=== PATIENT | male | born 1960 | race African-American/Black ===

== ENCOUNTER 2016-12-13 00:17 | Inpatient (IN) | payer MEDICARE, OTHER ==
[~2016-12-13] VITALS: Ht 182.9 cm; Wt 86.6 kg
[~2016-12-13 00:17] MED LIST: ATE50T PO; GABA-497 PO; HCTZ25T PO; HYDR-531 PO; LISI40TA PO; METH750T3 PO; NAP500T PO
[2016-12-13] MEDS ORDERED: InsuLIN REG 1unit/0.01ml Soln (100units/ml) IV ONE (00:45)
[2016-12-13] MEDS ORDERED: SODIUM CHLORIDE 0.9% 1,000 ML IV ONE ×4 (00:45→05:30)
[2016-12-13 00:56] LABS: Allen Test Yes; Base Excess -11.9 mmol/L (-2.0-2.0); Blood 02Sat 94.1 % (96-100); Blood COHb 0.4 % (0.5-1.5); Blood MetHb 0.5 % (0.0-1.5); HCO3 12.5 mmol/L (22-26.0); HHb 5.8 % (0.0-5.0); MODE ROOM AIR; O2Hb 93.3 % (94.0-97.0); PCO2 25.9 mmHg (35.0-45.0); PCO2(T) 25.9 mmHg (35.0-45.0); PO2 90.3 mmHg (80.0-100.0); PO2(T) 90.3 mmHg (80.0-100.0); Sample Type Arterial; pH 7.301 (7.350-7.450)
[2016-12-13 01:17] LABS: Basophils # (auto) 0 uL; CONDITION Y; Eosinophils # (auto) 0 uL; Hematocrit 45.9 % (41.0-53.0); Hemoglobin 14.7 g/dL (13.5-17.5); Lymphocytes # (auto) 0.9 uL; Lymphocytes % (auto) 4.8 % (10.0-50.0); Mean Corpuscular Hemoglobin 30.2 pg (28.0-32.0); Mean Corpuscular Hgb Conc. 31.9 g/dL (32.0-36.0); Mean Corpuscular Volume 94.4 fL (80.0-100.0); Mean Platelet Volume 10.5 fL (7.4-10.4); Monocytes # (auto) 0.9 uL; Monocytes % (auto) 4.7 % (0.0-12.0); Neutrophils # (auto) 16.4 uL; Neutrophils % (auto) 90.5 % (37.0-80.0); Platelet Count (auto) 290 10^3/uL (140-450); Red Cell Distribution Width 14.3 % (11.6-16.0); White Blood Cell 18.1 10^3/uL (4.4-10.8)
[2016-12-13 01:22] LABS: INR 1.07 (0.9-1.15); Partial Thromboplastin Time 25.1 sec (22.64-33.71); Prothrombin Time 11.7 sec (9.37-12.3)
[2016-12-13 01:23] LABS: Albumin 3.4 g/dL (3.4-5.0); Calcium 8.9 mg/dL (8.5-10.1); Magnesium 3.2 mg/dL (1.6-2.6); Total Protein 7.8 g/dL (6.4-8.2)
[2016-12-13 01:27] LABS: Bilirubin, Total 0.7 mg/dL (0.2-1.0)
[2016-12-13 01:29] LABS: Potassium 5.9 mmol/L (3.5-5.1)
[2016-12-13 01:30] LABS: B-Type Natriuretic Peptide 56.02 pg/mL (0-100)
[2016-12-13 01:47] LABS: Temperature: 23.7 C (20.0-25.0)
[2016-12-13] MEDS ORDERED: CALCIUM GLUC 4.65 MEQ/10ML 4.65 MEQ in SODIUM CHL 0.9% 50 ML IV ONE (02:45)
[2016-12-13] MEDS ORDERED: SODIUM BICARBONATE 8.4 % INJ 50ML VIAL IV ONE (02:45)
[2016-12-13 02:49] LABS: Urine Bilirubin Negative (Negative); Urine Blood TRACE /uL (Negative); Urine Color Yellow (Yellow); Urine Glucose 4+ mg/dL (Normal); Urine Hyaline Cast FEW /lpf (0 - 2); Urine Ketone 1+ (Negative); Urine Mucus FEW (None Seen); Urine Nitrite Negative (Negative); Urine RBC <1 /hpf (0 - 3); Urine Urobilinogen Normal (Negative)
[2016-12-13] MEDS ORDERED: CALCIUM GLUC 4.65 MEQ/10ML 10 ML IV ONE (02:49)
[2016-12-13] MEDS ORDERED: SODIUM BICARBONATE 8.4% INJ 50ML SYRINGE ONE (03:17)
[2016-12-13] MEDS ORDERED: InsuLIN R (HUMAN) 100 UNITS in SODIUM CHL 0.9% 99 ML IV SCH ×2 (03:32→05:46)
[2016-12-13] MEDS ORDERED: DEXTROSE (50%) 50ML SYRG IV PRN ×2 (03:45→06:00)
[2016-12-13 04:55] LABS: REFLEX LACTIC ACID YES OR NO YES
[2016-12-13] MEDS: ACCU-CHEK COMFORT CURVE STRIP VI SCH ×15 (05:35→18:36)
[2016-12-13] MEDS ORDERED: MORPHINE SULF INJ 2 MG/ML SYRINGE 1ML IV PRN (06:00)
[2016-12-13] MEDS ORDERED: TEMAZEPAM 15 MG CAP PO PRN (06:00)
[2016-12-13] MEDS ORDERED: NITROGLYCERIN 0.4 MG SL TAB SL PRN (06:00)
[2016-12-13] MEDS ORDERED: ONDANSETRON HCL 4 MG/2 ML VIAL IV PRN (06:00)
[2016-12-13] MEDS ORDERED: ACETAMINOPHEN 325 MG TAB PO PRN (06:00)
[2016-12-13 08:42] LABS: BUN/Creatinine Ratio 30.5; Calcium 9.1 mg/dL (8.5-10.1); Potassium 3.9 mmol/L (3.5-5.1)
[2016-12-13] MEDS ORDERED: cefTRIAXone 1GM/50ML D5W 50 ML IV SCH (09:00)
[2016-12-13] MEDS ORDERED: HCTZ 25 MG TAB PO SCH (10:00)
[2016-12-13] MEDS ORDERED: ENOXAPARIN SOD 30 MG/0.3 ML SYRINGE SC SCH (10:00)
[2016-12-13] MEDS ORDERED: LISINOPRIL 20 MG TAB PO SCH (10:00)
[2016-12-13] MEDS: PANTOPRAZOLE SODIUM 40 MG/10 ML VIAL IV SCH (10:07)
[2016-12-13] MEDS: ATENOLOL 50 MG TAB PO SCH (10:14)
[2016-12-13] MEDS ORDERED: SODIUM CHLORIDE 0.9% 1,000 ML IV SCH (11:46)
[2016-12-13 13:10] LABS: Potassium 3.7 mmol/L (3.5-5.1)
[2016-12-13 13:12] LABS: BUN/Creatinine Ratio 32.5
[2016-12-13] MEDS: SOD CHL 0.45% 1,000 ML IV SCH (14:07)
[2016-12-13] MEDS ORDERED: INSULIN DETEMIR(LEVEMIR) 1unit/0.01ml Soln (100units/ml) SC ONE (15:00)
[2016-12-13] MEDS: HYDROcodone-ACET 5/325MG TAB PO PRN (16:45)
[2016-12-13] MEDS ORDERED: InsuLIN REG 1unit/0.01ml Soln (100units/ml) ONE (16:56)
[2016-12-13 18:05] LABS: BUN/Creatinine Ratio 32.5; Calcium 9.2 mg/dL (8.5-10.1); Potassium 3.8 mmol/L (3.5-5.1)
[2016-12-13 20:30] VITALS: BP 149/96
[2016-12-13] MEDS: InsuLIN REG 1unit/0.01ml Soln (100units/ml) SC SCH (20:39)
[2016-12-13 23:27] VITALS: BP 149/96
[2016-12-14] VITALS (7 sets, daily range): BP systolic 125–155; BP diastolic 62–98
[2016-12-14 01:10] LABS: BUN/Creatinine Ratio 31.7; Calcium 8.8 mg/dL (8.5-10.1); Potassium 3.8 mmol/L (3.5-5.1)
[2016-12-14] MEDS: ACCU-CHEK COMFORT CURVE STRIP VI SCH ×6 (04:00→21:54)
[2016-12-14] MEDS: InsuLIN REG 1unit/0.01ml Soln (100units/ml) SC SCH ×6 (04:00→21:55)
[2016-12-14 09:42] LABS: CONDITION Y; Hematocrit 42.6 % (41.0-53.0); Hemoglobin 14.3 g/dL (13.5-17.5); Mean Corpuscular Hemoglobin 30.4 pg (28.0-32.0); Mean Corpuscular Hgb Conc. 33.5 g/dL (32.0-36.0); Mean Corpuscular Volume 90.8 fL (80.0-100.0); Mean Platelet Volume 9.6 fL (7.4-10.4); Platelet Count (auto) 219 10^3/uL (140-450); Red Cell Distribution Width 14.1 % (11.6-16.0); SUSPECT SEE PRINTOUT; White Blood Cell 20.9 10^3/uL (4.4-10.8)
[2016-12-14] MEDS: ATENOLOL 50 MG TAB PO SCH (09:43)
[2016-12-14] MEDS: ENOXAPARIN SOD 40 MG/0.4 ML SYRINGE SC SCH (09:44)
[2016-12-14] MEDS: PANTOPRAZOLE SODIUM 40 MG/10 ML VIAL IV SCH (09:44)
[2016-12-14] MEDS: SOD CHL 0.45% 1,000 ML IV SCH ×3 (09:45→13:15)
[2016-12-14 09:48] LABS: Metamyelocytes % 0; Myelocytes % 0; Promyelocytes % 0; Reactive Lymphocytes 0
[2016-12-14 09:58] LABS: Albumin 2.9 g/dL (3.4-5.0); BUN/Creatinine Ratio 36.8; Bilirubin, Total 0.5 mg/dL (0.2-1.0); Calcium 8.8 mg/dL (8.5-10.1); Magnesium 2.8 mg/dL (1.6-2.6); Potassium 3.7 mmol/L (3.5-5.1); Total Protein 6.6 g/dL (6.4-8.2)
[2016-12-14] MEDS ORDERED: DEXTROSE (50%) 50ML SYRG IV PRN (12:15)
[2016-12-14] MEDS ORDERED: INSULIN DETEMIR(LEVEMIR) 1unit/0.01ml Soln (100units/ml) SC ONE (12:15)
[2016-12-14] MEDS: GABAPENTIN 300 MG CAP PO SCH ×2 (13:22→21:54)
[2016-12-14 14:27] LABS: Platelet Estimate Adequate
[2016-12-14 14:32] LABS: RBC Morphology Normal
[2016-12-14] MEDS: INSULIN DETEMIR(LEVEMIR) 1unit/0.01ml Soln (100units/ml) SC SCH (21:57)
[2016-12-15 05:00] VITALS: BP 140/76
[2016-12-15] MEDS: SOD CHL 0.45% 1,000 ML IV SCH ×2 (05:28→19:36)
[2016-12-15] MEDS: GABAPENTIN 300 MG CAP PO SCH ×4 (06:00→22:00)
[2016-12-15 06:07] LABS: Basophils # (auto) 0 uL; Basophils % (auto) 0.3 % (0.0-2.0); CONDITION Y; Eosinophils # (auto) 0.4 uL; Eosinophils % (auto) 3.3 % (0.0-7.0); Hematocrit 43.4 % (41.0-53.0); Hemoglobin 14.3 g/dL (13.5-17.5); Lymphocytes % (auto) 24.4 % (10.0-50.0); Mean Corpuscular Hemoglobin 30.4 pg (28.0-32.0); Mean Corpuscular Hgb Conc. 32.9 g/dL (32.0-36.0); Mean Corpuscular Volume 92.4 fL (80.0-100.0); Mean Platelet Volume 9.6 fL (7.4-10.4); Monocytes # (auto) 0.7 uL; Platelet Count (auto) 202 10^3/uL (140-450); Red Cell Distribution Width 13.9 % (11.6-16.0); White Blood Cell 12.2 10^3/uL (4.4-10.8)
[2016-12-15] MEDS: InsuLIN REG 1unit/0.01ml Soln (100units/ml) SC SCH ×4 (06:49→22:41)
[2016-12-15] MEDS: ACCU-CHEK COMFORT CURVE STRIP VI SCH ×4 (06:49→22:00)
[2016-12-15 07:00] VITALS: BP 139/68
[2016-12-15] MEDS: HYDROcodone-ACET 5/325MG TAB PO PRN ×2 (09:28→17:15)
[2016-12-15] MEDS: ATENOLOL 50 MG TAB PO SCH (09:28)
[2016-12-15] MEDS: PANTOPRAZOLE SODIUM 40 MG/10 ML VIAL IV SCH (09:31)
[2016-12-15] MEDS: ENOXAPARIN SOD 40 MG/0.4 ML SYRINGE SC SCH (09:31)
[2016-12-15] MEDS: INSULIN DETEMIR(LEVEMIR) 1unit/0.01ml Soln (100units/ml) SC SCH ×2 (09:39→22:41)
[2016-12-15 09:58] LABS: BUN/Creatinine Ratio 27.2; Calcium 8.9 mg/dL (8.5-10.1); Potassium 3.9 mmol/L (3.5-5.1)
[2016-12-15 12:00] VITALS: BP 148/83
[2016-12-15 16:40] VITALS: BP 132/87
[2016-12-15 22:00] VITALS: BP 152/98
[2016-12-16 05:00] VITALS: BP 144/91
[2016-12-16 05:24] VITALS: BP 98/50
[2016-12-16] MEDS: HYDROcodone-ACET 5/325MG TAB PO PRN (05:46)
[2016-12-16] MEDS: GABAPENTIN 300 MG CAP PO SCH ×2 (05:50→14:00)
[2016-12-16 06:59] LABS: Basophils # (auto) 0.1 uL; Basophils % (auto) 0.6 % (0.0-2.0); CONDITION Y; Eosinophils # (auto) 0.4 uL; Eosinophils % (auto) 4.5 % (0.0-7.0); Hematocrit 40.8 % (41.0-53.0); Hemoglobin 13.6 g/dL (13.5-17.5); Lymphocytes # (auto) 2.8 uL; Lymphocytes % (auto) 32.6 % (10.0-50.0); Mean Corpuscular Hemoglobin 30.1 pg (28.0-32.0); Mean Corpuscular Hgb Conc. 33.2 g/dL (32.0-36.0); Mean Corpuscular Volume 90.8 fL (80.0-100.0); Mean Platelet Volume 9.9 fL (7.4-10.4); Monocytes # (auto) 0.4 uL; Monocytes % (auto) 4.3 % (0.0-12.0); Platelet Count (auto) 188 10^3/uL (140-450); Red Cell Distribution Width 14.1 % (11.6-16.0); White Blood Cell 8.6 10^3/uL (4.4-10.8)
[2016-12-16 07:21] LABS: BUN/Creatinine Ratio 24.4; Calcium 8.6 mg/dL (8.5-10.1); Potassium 3.9 mmol/L (3.5-5.1)
[2016-12-16 09:00] VITALS: BP 144/98
[2016-12-16] MEDS: ENOXAPARIN SOD 40 MG/0.4 ML SYRINGE SC SCH (09:56)
[2016-12-16] MEDS: ATENOLOL 50 MG TAB PO SCH (09:58)
[2016-12-16] MEDS ORDERED: PANTOPRAZOLE 40 MG TAB PO SCH (10:00)
[2016-12-16] MEDS: INSULIN DETEMIR(LEVEMIR) 1unit/0.01ml Soln (100units/ml) SC SCH (10:01)
[2016-12-16] MEDS ORDERED: INSUINJ37 SUBCUT (11:16)
[2016-12-16] MEDS: ACCU-CHEK COMFORT CURVE STRIP VI SCH (12:24)
[2016-12-16] MEDS: InsuLIN REG 1unit/0.01ml Soln (100units/ml) SC SCH (12:25)
[2016-12-16 13:00] VITALS: BP 152/92
[2016-12-16 13:21] VITALS: BP 152/92
== END 2016-12-16 15:50 | disposition home health service (06) | DRG 682 ==
LOC: EDBD 00:17 → ER 00:17 → TELE 00:18 → TELE-WESTW 21:20 → WEST WING 12-15 01:34
PROVIDERS: ADMIT Nurse Practitioner; ATTEND Internal Medicine
DX: N17.0 Acute kidney failure with tubular necrosis (principal); E13.10 Other specified diabetes mellitus with ketoacidosis without coma; G92 Toxic encephalopathy; E87.0 Hyperosmolality and hypernatremia; E87.5 Hyperkalemia; E86.0 Dehydration; E11.21 Type 2 diabetes mellitus with diabetic nephropathy; N18.9 Chronic kidney disease, unspecified; E11.22 Type 2 diabetes mellitus with diabetic chronic kidney disease; I12.9 Hypertensive chronic kidney disease with stage 1 through stage 4 chronic kidney disease, or unspecified chronic kidney disease; I25.10 Atherosclerotic heart disease of native coronary artery without angina pectoris; M48.02 Spinal stenosis, cervical region; Z82.49 Family history of ischemic heart disease and other diseases of the circulatory system; Z91.11 Patient's noncompliance with dietary regimen; Z79.4 Long term (current) use of insulin; Z79.899 Other long term (current) drug therapy
CPT/HCPCS: 36415; 36600; 70450; 71010; 72125; 80048; 80053; 80061; 80307; 81001; 82010; 82805; 82962; 83036; 83605; 83735; 83880; 83930; 84484; 85007; 85025; 85027; 85610; 85730; 87040; 93005; 94761; 96361; 96365; 96367; 96372; 96375; 97116; 97530; C9113; J0696; J1815

== ENCOUNTER 2018-11-27 16:50 | Inpatient (IN) | payer MEDICARE ==
[~2018-11-27] VITALS: Ht 176.5 cm; Wt 87.2 kg
[~2018-11-27 16:50] MED LIST changes: -GABA-497 PO; +GABA300C10 PO; +INSUINJ37 SUBCUT
[2018-11-27] MEDS ORDERED: hydrALAZINE HCL 20 MG/ML VL IV ONE ×2 (17:45)
[2018-11-27 18:25] LABS: Basophils # (auto) 0.1 uL; Basophils % (auto) 0.9 % (0.0-2.0); Eosinophils # (auto) 0.1 uL; Eosinophils % (auto) 1.6 % (0.0-7.0); Hematocrit 42.8 % (41.0-53.0); Hemoglobin 13.8 g/dL (13.5-17.5); Lymphocytes # (auto) 1.9 uL; Lymphocytes % (auto) 22.4 % (10.0-50.0); Mean Corpuscular Hemoglobin 27.3 pg (28.0-32.0); Mean Corpuscular Hgb Conc. 32.2 g/dL (32.0-36.0); Mean Corpuscular Volume 84.7 fL (80.0-100.0); Monocytes # (auto) 0.6 uL; Neutrophils # (auto) 5.8 uL; Neutrophils % (auto) 68.1 % (37.0-80.0); Nucleated Red Blood Cells % 0.1 %; Platelet Count (auto) 367 10^3/uL (140-450); Red Blood Cells 5.06 10^6/uL (4.5-5.90); Red Cell Distribution Width 17.3 % (11.8-14.3); White Blood Cell 8.5 10^3/uL (4.4-10.8)
[2018-11-27 18:41] LABS: Albumin 2.7 g/dL (3.4-5.0); Calcium 9.1 mg/dL (8.5-10.1); INR 0.95 (0.9-1.15); Magnesium 2.5 mg/dL (1.6-2.6); Potassium 3.9 mmol/L (3.5-5.1)
[2018-11-27 18:50] LABS: BUN/Creatinine Ratio 18.9; Bilirubin, Total 0.4 mg/dL (0.2-1.0)
[2018-11-27] MEDS ORDERED: HYDROcodone-ACET 5/325MG TAB PO ONE (19:15)
[2018-11-27] MEDS ORDERED: InsuLIN REG 1unit/0.01ml Soln (100units/ml) IV ONE (19:30)
[2018-11-27] MEDS ORDERED: ONDANSETRON HCL 4 MG/2 ML VIAL IV PRN (21:45)
[2018-11-27] MEDS ORDERED: LABETALOL HCL 5 MG/ML ML 20ML VIAL IV ONE (21:45)
[2018-11-27] MEDS ORDERED: ACETAMINOPHEN 325 MG TAB PO PRN (21:45)
[2018-11-27] MEDS ORDERED: DEXTROSE (50%) 50ML SYRG IV PRN (21:45)
[2018-11-27] MEDS: LISINOPRIL 20 MG TAB PO SCH (22:00)
[2018-11-27] MEDS: GABAPENTIN 300 MG CAP PO SCH (22:00)
[2018-11-27] MEDS: HYDROcodone-ACET 5/325MG TAB PO PRN (22:37)
[2018-11-27] MEDS: TEMAZEPAM 15 MG CAP PO PRN (22:37)
[2018-11-27] MEDS ORDERED: SODIUM CHLORIDE 0.9% 1,000 ML IV ONE (23:00)
--- NOTE | 2018-11-27 23:22 | NUR ---
MS admit from [facility] admitted to tele/MS after SBAR received. Patient oriented to LINDA LUU RN primary RN, unit, room, bed, and unit policies regarding patient care and visiting hours. Patient weighed by bedscale and encouraged to call if they need something. All questions and concerns addressed, patient verbalized understanding.
[2018-11-27] MEDS: SODIUM CHLORIDE 0.9% 1,000 ML IV SCH (23:30)
[2018-11-27] MEDS: InsuLIN REG 1unit/0.01ml Soln (100units/ml) SC SCH (23:56)
[2018-11-27] MEDS: ACCU-CHEK COMFORT CURVE STRIP VI SCH (23:56)
--- NOTE | 2018-11-27 23:56 | NUR ---
Hospitalist paged: Hospitalist paged regarding RN taking patient's blood pressure multiple times with last BP reading 185/108 with a heart rate of 108.
[2018-11-28] VITALS (7 sets, daily range): BP systolic 156–197; BP diastolic 96–115
--- NOTE | 2018-11-28 00:50 | NUR ---
Hospitalist returned call: Hospitalist returned call and updated on patient's condition regarding elevated BP: New orders obtained.
[2018-11-28] MEDS ORDERED: LABETALOL HCL 5 MG/ML ML 20ML VIAL IV ONE ×2 (01:00→05:30)
--- NOTE | 2018-11-28 02:02 | NUR ---
RN attempted to reassess patient's blood pressure after administration of PRN HTN medication but patient refused and stated he "wants to sleep" and that he is okay. RN to continue to monitor and assess patient.
--- NOTE | 2018-11-28 03:47 | NUR ---
MED REC PT DOES NOT REMEMBER HOME MEDS, SON TO BRING IN LIST IN AM. PRIMARY RN LINDA HINOJOSA.
[2018-11-28] MEDS: InsuLIN REG 1unit/0.01ml Soln (100units/ml) SC SCH ×5 (04:27→19:57)
[2018-11-28] MEDS: ACCU-CHEK COMFORT CURVE STRIP VI SCH ×5 (04:27→19:57)
--- NOTE | 2018-11-28 04:44 | NUR ---
Hospitalist paged: Hospitalist paged regarding RN taking patient's blood pressure multiple times with last BP reading 181/115 with a heart rate of 197. Patient complaining of feeling dizzy and patient expressing mild anxiety e/b mild restlessness. Patient placed on supplemental oxygen and repositioned in bed for comfort. RN continues to monitor patient at this time. Addendum: 11/28/18 at 0452 by LINDA LUU RN RN HR of 97, not 197
--- NOTE | 2018-11-28 05:17 | NUR ---
Hospitalist returned call: Hospitalist informed of patients condition and situation. New orders received.
[2018-11-28 06:19] LABS: Basophils # (auto) 0.1 uL; Basophils % (auto) 0.7 % (0.0-2.0); Eosinophils # (auto) 0.3 uL; Hematocrit 41.2 % (41.0-53.0); Hemoglobin 13.5 g/dL (13.5-17.5); Lymphocytes # (auto) 2.9 uL; Lymphocytes % (auto) 30.1 % (10.0-50.0); Mean Corpuscular Hemoglobin 27.4 pg (28.0-32.0); Mean Corpuscular Hgb Conc. 32.6 g/dL (32.0-36.0); Mean Corpuscular Volume 84.1 fL (80.0-100.0); Monocytes # (auto) 0.6 uL; Monocytes % (auto) 5.9 % (0.0-12.0); Neutrophils # (auto) 5.8 uL; Neutrophils % (auto) 60.3 % (37.0-80.0); Nucleated Red Blood Cells % 0.1 %; Platelet Count (auto) 340 10^3/uL (140-450); Red Cell Distribution Width 17.5 % (11.8-14.3); White Blood Cell 9.6 10^3/uL (4.4-10.8)
[2018-11-28 06:29] LABS: BUN/Creatinine Ratio 17.5; Potassium 3.3 mmol/L (3.5-5.1)
--- NOTE | 2018-11-28 06:52 | NUR ---
RN received call from REJI that patient had a run of V-tach. STAT EKG was performed and reading was NSR. Patient is asymptomatic and complaining of no chest pain at this time. Hospitalist paged and call returned. RN informed to give patient his morning HTN mediations early. Day shift RN informed.
[2018-11-28] MEDS: FAMOTIDINE 20 MG TAB PO SCH (08:05)
[2018-11-28] MEDS: ATENOLOL 50 MG TAB PO SCH (08:08)
[2018-11-28] MEDS: GABAPENTIN 300 MG CAP PO SCH ×2 (08:09→21:41)
[2018-11-28] MEDS: LISINOPRIL 20 MG TAB PO SCH ×2 (08:09→21:42)
[2018-11-28] MEDS: HYDROcodone-ACET 5/325MG TAB PO PRN ×2 (08:12→16:47)
[2018-11-28] MEDS ORDERED: HCTZ 25 MG TAB PO SCH (10:00)
[2018-11-28] MEDS ORDERED: LISINOPRIL 20 MG TAB PO ONE (13:15)
[2018-11-28 13:32] LABS: Cholesterol 135 mg/dL (< 200)
[2018-11-28 13:34] LABS: HDL Cholesterol 44 mg/dL (40-59); LDL Cholesterol 75 mg/dL (< 100); Triglycerides 161 mg/dL (< 150)
[2018-11-28] MEDS ORDERED: HYDROcodone-ACET 10/325MG TAB PO PRN (14:00)
[2018-11-28] MEDS: SODIUM CHLORIDE 0.9% 1,000 ML IV SCH (16:47)
--- NOTE | 2018-11-28 19:00 | NUR ---
Opening Shift Note Assumed care of patient, awake and alert. No S/S of distress/SOB or pain. Instructed on POC and to call for assist PRN, will continue to monitor for changes Q1hr and PRN.
[2018-11-28] MEDS: ATORVASTATIN 20 MG TAB PO SCH (21:41)
[2018-11-28] MEDS: cloNIDine HCL 0.1 MG TAB PO PRN (21:42)
[2018-11-28] MEDS ORDERED: LISINOPRIL 20 MG TAB PO SCH (22:00)
--- NOTE | 2018-11-28 22:42 | NUR ---
RN attempted to reassess patient's blood pressure after administration of PRN HTN medication but patient refused.
[2018-11-29] MEDS: ACCU-CHEK COMFORT CURVE STRIP VI SCH ×6 (00:07→20:44)
[2018-11-29] MEDS: SODIUM CHLORIDE 0.9% 1,000 ML IV SCH ×2 (01:18→13:09)
[2018-11-29] MEDS: InsuLIN REG 1unit/0.01ml Soln (100units/ml) SC SCH ×6 (04:00→20:45)
[2018-11-29] MEDS: HYDROcodone-ACET 5/325MG TAB PO PRN ×3 (04:31→20:10)
[2018-11-29 05:34] VITALS: BP 156/97
--- NOTE | 2018-11-29 07:40 | NUR ---
Assumed care of pt, awake and alert, no s&s of distress/sob or pain noted, instructed on poc and to call for assist prn, will continue to monitor for changes q1h and prn.
[2018-11-29 08:06] VITALS: BP 162/88
[2018-11-29] MEDS: ATENOLOL 50 MG TAB PO SCH (08:49)
[2018-11-29] MEDS: FAMOTIDINE 20 MG TAB PO SCH (08:50)
[2018-11-29] MEDS: GABAPENTIN 300 MG CAP PO SCH ×2 (08:50→22:16)
[2018-11-29] MEDS: HCTZ 25 MG TAB PO SCH (08:50)
[2018-11-29] MEDS: LISINOPRIL 20 MG TAB PO SCH ×2 (08:51→22:17)
--- NOTE | 2018-11-29 12:08 | NUR ---
Pt awake and alert, no s&s of distress/sob or pain noted, will continue to monitor for changes q1h and prn. Addendum: 11/29/18 at 1444 by Torito Yee RN Informed Dr. Fany Ha about noon time re pt's k was 3.3 yesterday and was not covered, no orders received.
[2018-11-29 12:42] VITALS: BP 160/88
--- NOTE | 2018-11-29 14:39 | NUR ---
Notified Dr. Fany Ha does he want a k level being that k was 3.3 on the (was not covered) and pt is having loose bm's today, orders received.
[2018-11-29 14:48] VITALS: BP 145/96
--- NOTE | 2018-11-29 15:40 | NUR ---
Pt awake and alert, no s&s of distress/sob or pain noted, will continue to monitor for changes q1h and prn.
[2018-11-29 16:44] VITALS: BP 149/90
--- NOTE | 2018-11-29 17:12 | NUR ---
assessment Patient is a 58 year old male who is alert and oriented. Prior to admission patient lived home with family and functioned independently. I informed patient he has a consult for SNF placement. Patient is refusing SNF. Patient states he will return home and will have family to help him on discharge. Addendum: 11/29/18 at 1715 by Carole BRITO Amended: Links added.
[2018-11-29 21:46] VITALS: BP 165/106
[2018-11-29] MEDS: ATORVASTATIN 20 MG TAB PO SCH (22:10)
[2018-11-29] MEDS: cloNIDine HCL 0.1 MG TAB PO PRN (22:18)
[2018-11-30] MEDS: ACCU-CHEK COMFORT CURVE STRIP VI SCH ×6 (00:03→20:22)
[2018-11-30] MEDS: InsuLIN REG 1unit/0.01ml Soln (100units/ml) SC SCH ×6 (03:52→20:31)
[2018-11-30] MEDS: cloNIDine HCL 0.1 MG TAB PO PRN (05:16)
[2018-11-30] MEDS: HYDROcodone-ACET 5/325MG TAB PO PRN ×3 (05:16→20:32)
[2018-11-30 05:23] VITALS: BP_SYST 107
[2018-11-30 06:02] LABS: BUN/Creatinine Ratio 24.7; Calcium 8.6 mg/dL (8.5-10.1); Potassium 4.2 mmol/L (3.5-5.1)
--- NOTE | 2018-11-30 07:50 | NUR ---
Opening Shift Note Assumed care of patient, awake and alert X4. No S/S of distress/SOB or pain. On room air , breath sounds even and unlabored. Bed at lowest position and call light within reach. Instructed on POC and to call for assist PRN, will continue to monitor for changes Q1hr and PRN.
[2018-11-30] MEDS: ATENOLOL 50 MG TAB PO SCH (08:37)
[2018-11-30] MEDS: LISINOPRIL 20 MG TAB PO SCH ×2 (08:37→22:46)
[2018-11-30] MEDS: GABAPENTIN 300 MG CAP PO SCH ×2 (08:37→22:46)
[2018-11-30] MEDS: FAMOTIDINE 20 MG TAB PO SCH (08:37)
[2018-11-30] MEDS: HCTZ 25 MG TAB PO SCH (08:38)
[2018-11-30 09:45] VITALS: BP 164/90
--- NOTE | 2018-11-30 11:50 | NUR ---
Dr. Ha at bedside. states" Patient is improving possible d/c tomorrow". Patient aware.
[2018-11-30 12:41] VITALS: BP 136/86
--- NOTE | 2018-11-30 14:55 | NUR ---
re-assessment Per consult home health PT. Patient informed me to call his ex Ger Doss [phone]. Per Shwetasofiavirgen we can use home health Dr Leland Babcock. Addendum: 11/30/18 at 1458 by Carole Perez Amended: Links added.
--- NOTE | 2018-11-30 15:23 | NUR ---
Per SS consult consult for home health physical therapy. Contacted [facility]: ) Fax: ) faxed medical records. Per Lianna from [facility] Pt has been accepted and service to start within 48 hours. Addendum: 11/30/18 at 1526 by DARVIN SCHWARTZ Amended: Links added.
[2018-11-30 16:27] VITALS: BP 152/90
[2018-11-30] MEDS ORDERED: LORazepam 2MG/ML-1ML VIAL IV PRN (17:30)
[2018-11-30] MEDS: ATORVASTATIN 20 MG TAB PO SCH (22:45)
[2018-11-30] MEDS: TEMAZEPAM 15 MG CAP PO PRN (22:47)
[2018-12-01] MEDS: ACCU-CHEK COMFORT CURVE STRIP VI SCH ×6 (00:03→20:23)
[2018-12-01] MEDS: InsuLIN REG 1unit/0.01ml Soln (100units/ml) SC SCH ×6 (00:10→20:46)
--- NOTE | 2018-12-01 00:43 | NUR ---
gave report to ecoh ellison
--- NOTE | 2018-12-01 00:45 | NUR ---
Received report from Padmini ROJAS and assumed care of pt at this time.
[2018-12-01] MEDS: cloNIDine HCL 0.1 MG TAB PO PRN ×2 (04:56→20:46)
[2018-12-01 05:05] VITALS: BP 179/108
--- NOTE | 2018-12-01 06:59 | NUR ---
AM B/P= 179/108 PRN Clonidine given per orders and recheck B/P = 179/109. Pt yelling at staff , " Quit bothering me! I am trying to sleep." Hospitalist paged at this time to report elevated b/p.
[2018-12-01] MEDS ORDERED: cloNIDine HCL 0.1 MG TAB PO PRN ×2 (07:30→13:30)
--- NOTE | 2018-12-01 07:50 | NUR ---
Opening Shift Note Assumed care of patient, comfortably sleeping, breath sounds even and unlabored, on room air. No S/S of distress/SOB or pain. Bed at lowest position and call light within reach. Will continue to monitor for changes Q1hr and PRN.
--- NOTE | 2018-12-01 08:30 | NUR ---
Came in to check patients blood sugar check and patient was very angry , stated " why do yall always come and bother me", I explained to him that it was not my intention to bother him . I asked if i had his permission to check his glucose. Patient agreed but continues to be aggressive. Will continue to monitor.
[2018-12-01 08:44] VITALS: BP 179/109
[2018-12-01] MEDS: FAMOTIDINE 20 MG TAB PO SCH (09:01)
[2018-12-01] MEDS: HCTZ 25 MG TAB PO SCH (09:01)
[2018-12-01] MEDS: HYDROcodone-ACET 5/325MG TAB PO PRN ×2 (09:02→20:47)
[2018-12-01] MEDS: LISINOPRIL 20 MG TAB PO SCH ×2 (09:02→21:57)
[2018-12-01] MEDS: GABAPENTIN 300 MG CAP PO SCH ×2 (09:03→21:56)
[2018-12-01] MEDS: ATENOLOL 50 MG TAB PO SCH (09:03)
--- NOTE | 2018-12-01 12:24 | NUR ---
Nutrition Assessment Notes please see attached link for complete assessment Est. Needs BW [id number] kcal (23-25 kcal/kgBW), 65-82gms pro (0.8-1.0 gms/kgBW r/t elev RFT). Will continue to monitor pertinent labs and reassess nutrient need prn Addendum: 12/01/18 at [address] Amended: Links added.
[2018-12-01 13:00] VITALS: BP 164/103
--- NOTE | 2018-12-01 13:00 | NUR ---
Blood Pressure Patient's BP is 164/103, no s/s of distress/sob noted stated. Notified Dr. Ha, orders obtained for clonidine IV 0.2mg once, 0.2mg clonidine IV Q6HR PRN if SBP >160. Orders read back and verified. Will continue to monitor. Addendum: 12/01/18 at 1352 by Carissa Cohen RN * please disregard route for medication orders. PO route for medication orders.
[2018-12-01] MEDS ORDERED: cloNIDine HCL 0.1 MG TAB PO ONE (13:30)
--- NOTE | 2018-12-01 14:00 | NUR ---
Blood Pressure BP 145/87. No s/s distress/sob.
[2018-12-01 17:00] VITALS: BP 147/88
[2018-12-01 21:40] VITALS: BP 198/111
[2018-12-01] MEDS: ATORVASTATIN 20 MG TAB PO SCH (21:56)
[2018-12-02] VITALS (8 sets, daily range): BP systolic 106–201; BP diastolic 92–119
[2018-12-02] MEDS: ACCU-CHEK COMFORT CURVE STRIP VI SCH ×7 (00:09→23:51)
[2018-12-02] MEDS: TEMAZEPAM 15 MG CAP PO PRN ×2 (00:10→21:33)
[2018-12-02] MEDS: InsuLIN REG 1unit/0.01ml Soln (100units/ml) SC SCH ×7 (03:39→23:52)
[2018-12-02] MEDS: HYDROcodone-ACET 5/325MG TAB PO PRN ×3 (03:39→16:00)
--- NOTE | 2018-12-02 04:37 | NUR ---
GAVE REPORT TO COLLIN ROJAS
--- NOTE | 2018-12-02 04:37 | NUR ---
RECEIVED REPORT Received report from Padmini ROJAS
--- NOTE | 2018-12-02 07:00 | NUR ---
IV DRESSING IV dressing to RAC changed. Patient tolerated well. Day shift RN informed
--- NOTE | 2018-12-02 07:45 | NUR ---
OPENING SHIFT NOTE ASSUMED CARE OF PATIENT. PATIENT AWAKE AND ALERT SITTING UP IN BED EATING BREAKFAST AT THIS TIME. NO S/S OF DISTRESS OR SOB NOTED. BED IN LOWEST LOCKED POSITION, CALL LIGHT WITHIN REACH. REVIEWED POC WITH PATIENT AND INSTRUCTED TO CALL FOR ASSIST NEEDED. CONTINUING TO MONITOR.
[2018-12-02] MEDS: LISINOPRIL 20 MG TAB PO SCH ×2 (09:57→21:46)
[2018-12-02] MEDS: GABAPENTIN 300 MG CAP PO SCH ×2 (09:58→21:33)
[2018-12-02] MEDS: FAMOTIDINE 20 MG TAB PO SCH (09:58)
[2018-12-02] MEDS: ATENOLOL 50 MG TAB PO SCH (09:58)
[2018-12-02] MEDS: HCTZ 25 MG TAB PO SCH (09:59)
--- NOTE | 2018-12-02 11:10 | NUR ---
AT BEDSIDE DR Fany GÓMEZ AT BEDSIDE AT THIS TIME. NO NEW ORDERS RECEIVED. CONTINUING TO MONITOR.
--- NOTE | 2018-12-02 19:30 | NUR ---
Opening Shift Note Assumed care of patient, awake and alert. No S/S of distress/SOB or pain. Insructed on POC and to callfor assist PRN, will continue to monitor for changes Q1hr and PRN. Fall and safety precautions in place. Call light within reach.
[2018-12-02] MEDS: cloNIDine HCL 0.1 MG TAB PO PRN (20:46)
[2018-12-02] MEDS: ATORVASTATIN 20 MG TAB PO SCH (21:33)
--- NOTE | 2018-12-02 21:45 | NUR ---
IV ACCESS ATTEMPT Second IV access attempted for scheduled procedure tomorrow 12/03/18, unsuccessful. Patient stated he only wanted 1 attempt at this time, agreed to have RN attempt again in AM. Will attempt IV access in morning. IV dressing changed to RAC. Patient tolerated well. Will continue to monitor
[2018-12-02 22:57] LABS: Alcohol, Urine < 3.0 mg/dL (0-5); Amphetamine Screen, Urine NEGATIVE (NEGATIVE); Barbiturate Scree,Urine NEGATIVE (NEGATIVE); Benzodiazephine Screen, Urine NEGATIVE (NEGATIVE); Cannabinoid Screen, Urine NEGATIVE (NEGATIVE); Cocaine Screen, Urine NEGATIVE (NEGATIVE); Opiate Scree,Urine POSITIVE (NEGATIVE); Phencyclidine Screen, Urine NEGATIVE (NEGATIVE)
[2018-12-03] VITALS (8 sets, daily range): BP systolic 139–186; BP diastolic 85–103
--- NOTE | 2018-12-03 | NUR ---
HOSPITALIST Paged hospitalist regarding patient's blood pressure. Awaiting call back
--- NOTE | 2018-12-03 | NUR ---
NPO Patient informed that he needs to be NPO for scheduled procedure today 12/03/18. Patient verbalized understanding and agreement. Bedside table cleared of food and drink. Will continue to monitor
[2018-12-03] MEDS ORDERED: LISI40TA PO (00:05)
[2018-12-03] MEDS ORDERED: HYDR25TA4 PO (00:05)
--- NOTE | 2018-12-03 00:26 | NUR ---
HOSPITALIST Received call back from Rachell Mcgovern DIRECTOR OF COMMUNITY SERVICES, new orders received. Will input and carry out
[2018-12-03] MEDS ORDERED: hydrALAZINE HCL 20 MG/ML VL IV ONE (00:30)
--- NOTE | 2018-12-03 01:09 | NUR ---
SOB Patient complaining of shortness of breath, stating he "can't catch his breath." Patient was placed on O2 at 2L NC. Vitals taken at this time; BP 139/85, HR 85, O2 100%. Lung sounds clear anteriorly and posteriorly. Patient stated he felt his "throat was closing" and pointed to upper anterior mid chest stating "right here." Hospitalist paged. Received call back from Rachell Mcgovern NP, informed her of patient's complaints and vitals. New orders received. Will input and carry out. RT paged to assess patient. 0115: Medication administered as ordered. RT at bedside assessing patient. 0126: Received call from Rachell Mcgovern NP, updated her on patient's status and RT's assessment. New orders received, will input and have RT carry out. 0145: RT at bedside for breathing treatment
[2018-12-03] MEDS ORDERED: methylPREDNISolone SOD SUCC 125 MG/2 ML VL ONE (01:10)
[2018-12-03] MEDS ORDERED: diphenhdrAMINE HCL 50 MG/1 ML VL ONE (01:12)
[2018-12-03] MEDS ORDERED: ALBUTEROL SULF 2.5 MG/0.5ML(0.5%) NEB SOLN NEB ONE (01:30)
[2018-12-03] MEDS ORDERED: IPRATROPIUM BROM 0.5 MG/2.5ML INH SOL NEB ONE (01:30)
[2018-12-03] MEDS ORDERED: diphenhdrAMINE HCL 50 MG/1 ML VL IM ONE (01:30)
[2018-12-03] MEDS ORDERED: methylPREDNISolone SOD SUCC 125 MG/2 ML VL IV ONE (01:30)
[2018-12-03] MEDS ORDERED: ALBUTEROL SULF 2.5 MG/0.5ML(0.5%) NEB SOLN ONE ×2 (01:36→01:37)
[2018-12-03] MEDS ORDERED: IPRATROPIUM BROM 0.5 MG/2.5ML INH SOL ONE ×2 (01:36)
--- NOTE | 2018-12-03 01:55 | NUR ---
RE-ASSESS In to re-assess patient at this time. Patient resting quietly with eyes closed, even and nonlabored breathing. Pulse ox reading 100% on 4L NC. Patient opened his eyes while being disconnected from vitals machine. When patient was asked how he was feeling, patient replied with "I'm resting." Patient denied SOB and/or distress at this time. Will continue to monitor.
[2018-12-03] MEDS: ACCU-CHEK COMFORT CURVE STRIP VI SCH ×6 (03:37→23:37)
[2018-12-03] MEDS: InsuLIN REG 1unit/0.01ml Soln (100units/ml) SC SCH ×6 (03:37→23:37)
--- NOTE | 2018-12-03 03:49 | NUR ---
IV insertion IV access obtained, via clean sterile technique by inserting 20 gauge catheter at LFA after second attempt. IV secured properly. No trauma to site. Patient tolerated well.
[2018-12-03] MEDS: cloNIDine HCL 0.1 MG TAB PO PRN ×2 (05:21→23:57)
[2018-12-03] MEDS: HYDROcodone-ACET 5/325MG TAB PO PRN ×2 (05:21→21:42)
--- NOTE | 2018-12-03 06:00 | NUR ---
BLOOD SUGAR Patient's blood sugar checked at this time, result was 207. Patient has been NPO since midnight and blood sugar check at 0400 was 257. Insulin was given as ordered to control patient's blood sugar. No signs of hypo/hyperglycemia and/or distress noted, patient resting quietly with eyes closed, even and nonlabored breathing. Will continue to monitor.
--- NOTE | 2018-12-03 07:45 | NUR ---
OPENING SHIFT NOTE ASSUMED CARE OF PATIENT. PATIENT RESTING COMFORTABLY IN BED AT THIS TIME. NO S/S OF DISTRESS OR SOB NOTED. BED IN LOWEST LOCKED POSITION, CALL LIGHT WITHIN REACH. WILL CONTINUE TO MONITOR.
[2018-12-03] MEDS ORDERED: ADENOSINE 73 MG in GIVE UN-DILUTED 0 ML IV STA (08:30)
--- NOTE | 2018-12-03 10:00 | NUR ---
PATIENT OFF UNIT PATIENT OFF UNIT FOR FIRST HALF OF STRESS TEST. AWAITING RETURN.
[2018-12-03] MEDS: HCTZ 25 MG TAB PO SCH (11:13)
[2018-12-03] MEDS: GABAPENTIN 300 MG CAP PO SCH ×2 (11:14→21:42)
[2018-12-03] MEDS: FAMOTIDINE 20 MG TAB PO SCH (11:14)
[2018-12-03] MEDS: LISINOPRIL 20 MG TAB PO SCH ×2 (11:15→21:42)
[2018-12-03] MEDS ORDERED: GADOPENTETATE DIMEGLUMINE (10MMOL/20 ML) VIAL IV ONE (13:25)
--- NOTE | 2018-12-03 13:40 | NUR ---
OFF UNIT PATIENT OFF UNIT FOR MRI AT THIS TIME. AWAITING RETURN.
--- NOTE | 2018-12-03 14:40 | NUR ---
AT BEDSIDE DR ZAPIEN AT BEDSIDE AT THIS TIME. CONTINUING TO MONITOR.
--- NOTE | 2018-12-03 16:15 | NUR ---
OFF UNIT PATIENT OFF UNIT TO SECOND PART OF STRESS TEST AT THIS TIME. AWAITING RETURN.
--- NOTE | 2018-12-03 18:52 | NUR ---
END OF SHIFT NOTE PATIENT RESTING COMFORTABLY IN BED AT THIS TIME. NO S/S OF DISTRESS OR SOB NOTED. BED IN LOWEST LOCKED POSITION, CALL LIGHT WITHIN REACH. WILL ENDORSE CARE TO NOC RN.
--- NOTE | 2018-12-03 19:30 | NUR ---
Opening Shift Note Assumed care of patient, awake and alert. No S/S of distress/SOB or pain. Insructed on POC and to callfor assist PRN, will continue to monitor for changes Q1hr and PRN. Family at bedside. Fall and safety precautions in place. Call light within reach. IV removal IV DC'd with clean sterile technique, catheter fully intact. Pressure dressing applied to site. Patient tolerated well. NOTE: RAC 20g removed due to leaking.
[2018-12-03] MEDS: ATORVASTATIN 20 MG TAB PO SCH (21:41)
--- NOTE | 2018-12-03 22:45 | NUR ---
BLOOD PRESSURE Blood pressure rechecked at this time, 183/103, HR 85. Patient medicated with PRN blood pressure medication (see emar). Will recheck approximately 1 hour. Addendum: 12/04/18 at 0142 by Dianne Enrique RN RN Incorrect time, supposed to be 2355, not 6665
[2018-12-04] VITALS (7 sets, daily range): BP systolic 100–188; BP diastolic 67–112
--- NOTE | 2018-12-04 01:00 | NUR ---
BLOOD PRESSURE Rechecked blood pressure at this time, 166/94, HR 91. Patient states "just let it be." Educated patient risks of having high blood pressure, patient verbalized understanding, but states he wants to rest. Will recheck blood pressure again at later time. Will page hospitalist regarding this at 0200.
--- NOTE | 2018-12-04 01:56 | NUR ---
HOSPITALIST Paged hospitalist regarding blood pressure. Awaiting call back
--- NOTE | 2018-12-04 01:58 | NUR ---
HOSPITALIST Received call back from Rachell Mcgovern WRAPPING MACHINE TENDER, new orders received. Will input and carry out.
[2018-12-04] MEDS ORDERED: LABETALOL HCL 5 MG/ML ML 20ML VIAL IV ONE (02:00)
--- NOTE | 2018-12-04 03:20 | NUR ---
BLOOD PRESSURE Rechecked blood pressure after one time medication order, BP 100/67, HR 111. Patient denies pain and/or distress. Will continue to monitor
[2018-12-04] MEDS: InsuLIN REG 1unit/0.01ml Soln (100units/ml) SC SCH ×5 (04:02→20:00)
[2018-12-04] MEDS: ACCU-CHEK COMFORT CURVE STRIP VI SCH ×5 (04:02→22:11)
[2018-12-04] MEDS: HYDROcodone-ACET 5/325MG TAB PO PRN ×3 (04:38→22:07)
--- NOTE | 2018-12-04 07:43 | NUR ---
OPENING SHIFT NOTE ASSUMED CARE OF PATIENT. PATIENT AWAKE AND ALERT SITTING UP IN BED. NO S/S OF DISTRESS OR SOB NOTED. BED IN LOWEST LOCKED POSITION, CALL LIGHT WITHIN REACH. REVIEWED POC WITH PATIENT AND INSTRUCTED TO CALL FOR ASSIST NEEDED. WILL CONTINUE TO MONITOR.
[2018-12-04 10:32] LABS: Basophils # (auto) 0.1 uL; Basophils % (auto) 0.4 % (0.0-2.0); Eosinophils # (auto) 0 uL; Eosinophils % (auto) 0.3 % (0.0-7.0); Hematocrit 36.4 % (41.0-53.0); Hemoglobin 11.7 g/dL (13.5-17.5); Lymphocytes # (auto) 2.2 uL; Lymphocytes % (auto) 18.6 % (10.0-50.0); Mean Corpuscular Hemoglobin 27.1 pg (28.0-32.0); Mean Corpuscular Hgb Conc. 32.2 g/dL (32.0-36.0); Mean Corpuscular Volume 84.2 fL (80.0-100.0); Monocytes # (auto) 0.8 uL; Monocytes % (auto) 6.5 % (0.0-12.0); Neutrophils # (auto) 8.9 uL; Neutrophils % (auto) 74.2 % (37.0-80.0); Nucleated Red Blood Cells % 0.1 %; Platelet Count (auto) 279 10^3/uL (140-450); Red Blood Cells 4.32 10^6/uL (4.5-5.90); Red Cell Distribution Width 17.5 % (11.8-14.3)
[2018-12-04] MEDS: FAMOTIDINE 20 MG TAB PO SCH (10:49)
[2018-12-04] MEDS: ATENOLOL 50 MG TAB PO SCH (10:49)
[2018-12-04] MEDS: HCTZ 25 MG TAB PO SCH (10:49)
[2018-12-04] MEDS: GABAPENTIN 300 MG CAP PO SCH ×2 (10:49→21:43)
[2018-12-04] MEDS: LISINOPRIL 20 MG TAB PO SCH ×2 (10:50→21:44)
[2018-12-04 13:02] LABS: Albumin 2.4 g/dL (3.4-5.0); BUN/Creatinine Ratio 30.8; Calcium 8.8 mg/dL (8.5-10.1); Potassium 4.3 mmol/L (3.5-5.1)
[2018-12-04 13:04] LABS: Bilirubin, Total 0.2 mg/dL (0.2-1.0); Total Protein 6.1 g/dL (6.4-8.2)
--- NOTE | 2018-12-04 15:10 | NUR ---
AT BEDSIDE DR. ZAPIEN AT BEDSIDE AT THIS TIME. NEW ORDERS PLACED. WILL CARRY OUT ORDERED. CONTINUING TO MONITOR.
[2018-12-04] MEDS: HYDROCORTISONE 10 MG TAB PO SCH ×2 (18:08→21:42)
--- NOTE | 2018-12-04 19:30 | NUR ---
Opening Shift Note Assumed care of patient, awake and alert. No S/S of distress/SOB or painat this time. Instructed on POC and to call for assist PRN. This RN will continue to monitor for changes Q1hr and PRN. Bed in low position. Call light in pt's bed. HOB in semi-Sawyer's position.
[2018-12-04] MEDS: hydrALAZINE HCL 10 MG TAB PO SCH (21:43)
[2018-12-04] MEDS: ATORVASTATIN 20 MG TAB PO SCH (21:43)
[2018-12-04] MEDS: TEMAZEPAM 15 MG CAP PO PRN (22:07)
[2018-12-04] MEDS: INSULIN LANTUS (GLARGINE) 1 /0.01ml (100units/ml) SC SCH (22:19)
[2018-12-05 00:30] VITALS: BP 206/118
--- NOTE | 2018-12-05 00:40 | NUR ---
EKG done with pt's c/o chest pain; EKG improved sl from prev EKG. Pt relaxing and breathing less labored as this RN talks him through breathing technique and quieting for EKG to be done.
[2018-12-05] MEDS: TEMAZEPAM 15 MG CAP PO PRN ×2 (01:00→22:08)
[2018-12-05] MEDS: cloNIDine HCL 0.1 MG TAB PO PRN (01:03)
--- NOTE | 2018-12-05 01:05 | NUR ---
Sha nevarez as BP now 206/118 after pt became frustrated, irritated with CNAs that he was experiencing pain caused by Tele leads. When this RN entered room, pt stating that pain 10/10 and spreading across lower chest/upper abd from L to R; "feels tight." Then pt immed. changed account to not like belt but like gassy, cramping stomach only higher up thorax. This RN keeping voice low and controlled. Instructing pt to slow and control breathing to get pain to decrease. Pt following instruction well and slowing breaths and becoming calm. Able to laugh briefly and thanked this RN.
[2018-12-05] MEDS: ACCU-CHEK COMFORT CURVE STRIP VI SCH ×6 (01:11→20:25)
[2018-12-05] MEDS: InsuLIN REG 1unit/0.01ml Soln (100units/ml) SC SCH ×6 (01:12→20:34)
[2018-12-05] MEDS: HYDROcodone-ACET 5/325MG TAB PO PRN ×3 (04:15→20:15)
[2018-12-05 04:45] VITALS: BP 182/104
[2018-12-05] MEDS: hydrALAZINE HCL 10 MG TAB PO SCH (06:28)
[2018-12-05] MEDS: HYDROCORTISONE 10 MG TAB PO SCH ×4 (06:30→22:03)
[2018-12-05] MEDS: INSULIN LANTUS (GLARGINE) 1 /0.01ml (100units/ml) SC SCH ×2 (06:35→22:09)
[2018-12-05 07:31] LABS: Basophils # (auto) 0.1 uL; Basophils % (auto) 0.7 % (0.0-2.0); Eosinophils # (auto) 0.2 uL; Eosinophils % (auto) 1.9 % (0.0-7.0); Hematocrit 34.1 % (41.0-53.0); Hemoglobin 11.3 g/dL (13.5-17.5); Lymphocytes # (auto) 2.7 uL; Lymphocytes % (auto) 30.2 % (10.0-50.0); Mean Corpuscular Hemoglobin 27.8 pg (28.0-32.0); Mean Corpuscular Hgb Conc. 33.2 g/dL (32.0-36.0); Mean Corpuscular Volume 83.8 fL (80.0-100.0); Monocytes # (auto) 0.7 uL; Monocytes % (auto) 8.1 % (0.0-12.0); Neutrophils # (auto) 5.2 uL; Neutrophils % (auto) 59.1 % (37.0-80.0); Nucleated Red Blood Cells % 0.1 %; Platelet Count (auto) 270 10^3/uL (140-450); Red Blood Cells 4.07 10^6/uL (4.5-5.90); Red Cell Distribution Width 17.1 % (11.8-14.3); White Blood Cell 8.9 10^3/uL (4.4-10.8)
[2018-12-05 08:04] LABS: Calcium 8.5 mg/dL (8.5-10.1); Potassium 4.2 mmol/L (3.5-5.1)
[2018-12-05 08:06] LABS: BUN/Creatinine Ratio 33.3
[2018-12-05 09:00] VITALS: BP 151/92
[2018-12-05] MEDS: LISINOPRIL 20 MG TAB PO SCH ×2 (09:56→22:07)
[2018-12-05] MEDS: ATENOLOL 50 MG TAB PO SCH (09:57)
[2018-12-05] MEDS: GABAPENTIN 300 MG CAP PO SCH ×2 (09:57→22:05)
[2018-12-05] MEDS: HCTZ 25 MG TAB PO SCH (09:57)
[2018-12-05] MEDS: FAMOTIDINE 20 MG TAB PO SCH (09:57)
[2018-12-05 13:08] VITALS: BP 167/98
--- NOTE | 2018-12-05 13:31 | NUR ---
Rotary Envelope Machine Operator at bedside Gloria Zavala REGULATORY AFFAIRS ANALYST aware of pt's status, new orders received for CT angio. I spoke to Rell with ct and he states it will not be done until tomorrow after patient is NPO after MN tonight. Cont care
--- NOTE | 2018-12-05 13:54 | NUR ---
voip network technician at bedside
[2018-12-05] MEDS ORDERED: hydrALAZINE HCL 25 MG TAB PO SCH (14:00)
--- NOTE | 2018-12-05 14:31 | NUR ---
Re: CT angio Regarding CT angio heart w/3D. Per Ange with CT states there is no RN available to do it tomorrow and it will more likely be done until Monday after note of approval from doctor to inject contrast even with abnormal labs. I spoke to Gloria Zavala CHEESEMAKER HELPER regarding this and new orders received for NS at 75ml/hr to prepare patient for contrast. PUNEET Zavala states she will f/u labs on Monday and go from there, but for now, continue with plan for CT angio Heart on Monday. Orders placed for NS maintenance fluid, NPO after MN tomorrow and no caffeine for Fridays procedure. I spoke to Stephanie with Dietary and notified of No caffeine order she verbalized understanding. Will cont care
[2018-12-05] MEDS: SODIUM CHLORIDE 0.9% 1,000 ML IV SCH ×2 (16:30→20:24)
[2018-12-05 17:00] VITALS: BP 174/116
--- NOTE | 2018-12-05 19:00 | NUR ---
Patient care endorsed Patient care endorsed to Maty ellison. Patient sitting up in bed in no acute distress or sob. Call light within reach.
--- NOTE | 2018-12-05 19:00 | NUR ---
Opening Shift Note Assumed care of patient, awake and alert. Pt angry about things happened during prev. shift. Encouraged pt to find ways to release pent up frustration and anger than carrying it into other situations/relationships. Instructed on POC and to call for assist PRN, will continue to monitor for changes Q1hr and PRN. Bed in low position. HOB in semi-Sawyer's position. Call light in bed beside pt.
[2018-12-05 22:00] VITALS: BP 207/124
[2018-12-05] MEDS: hydrALAZINE HCL 25 MG TAB PO SCH (22:02)
[2018-12-05] MEDS: ATORVASTATIN 20 MG TAB PO SCH (22:05)
[2018-12-06] VITALS (7 sets, daily range): BP systolic 160–192; BP diastolic 89–111
[2018-12-06] MEDS: HYDROcodone-ACET 5/325MG TAB PO PRN ×4 (00:17→21:04)
[2018-12-06] MEDS: cloNIDine HCL 0.1 MG TAB PO PRN ×3 (00:21→11:54)
[2018-12-06] MEDS: ACCU-CHEK COMFORT CURVE STRIP VI SCH ×6 (00:27→22:49)
[2018-12-06] MEDS: InsuLIN REG 1unit/0.01ml Soln (100units/ml) SC SCH ×6 (00:28→22:49)
--- NOTE | 2018-12-06 02:33 | NUR ---
Theresa Cook RN PATTERNMAKER, hospitalist re. pt's continued elevated bp. Pt c/o headache. Discussed how Wisner can contribute to this and cannot over use tylenol.
--- NOTE | 2018-12-06 03:36 | NUR ---
Call received from Janki Cook RN ASSEMBLIES AND INSTALLATIONS INSPECTOR, hospitalist. New order received.
[2018-12-06] MEDS ORDERED: LABETALOL HCL 5 MG/ML ML 20ML VIAL IV ONE (03:45)
[2018-12-06] MEDS: HYDROCORTISONE 10 MG TAB PO SCH ×2 (06:57→12:15)
[2018-12-06] MEDS: INSULIN LANTUS (GLARGINE) 1 /0.01ml (100units/ml) SC SCH ×2 (07:04→22:49)
--- NOTE | 2018-12-06 07:30 | NUR ---
OPENING SHIFT NOTE: Received report from NOC RNMaty. Assumed care of patient. Patient resting in bed. States pain is 5/10 to back and is at a comfortable level. Bed in lowest position, rails x2 up and call light within reach. Updated on plan of care. Will continue to monitor.
--- NOTE | 2018-12-06 08:00 | NUR ---
BLOOD PRESSURE: Informed by NAT Sidhu BP is 176/107. Patient previously received one time dose of Labetalol. Will give AM BP medication earlier and reassess BP.
[2018-12-06] MEDS: FAMOTIDINE 20 MG TAB PO SCH (09:10)
[2018-12-06] MEDS: GABAPENTIN 300 MG CAP PO SCH ×2 (09:10→20:59)
[2018-12-06] MEDS: hydrALAZINE HCL 25 MG TAB PO SCH ×3 (09:10→21:00)
[2018-12-06] MEDS: HCTZ 25 MG TAB PO SCH (09:10)
[2018-12-06] MEDS: LISINOPRIL 20 MG TAB PO SCH ×2 (09:11→21:00)
[2018-12-06] MEDS: ATENOLOL 50 MG TAB PO SCH (09:12)
--- NOTE | 2018-12-06 11:30 | NUR ---
BLOOD PRESSURE: Notified by NAT Sidhu that BP is 198/108 and patient is c/o headache. Medicated patient with Clonidine as ordered. Paged Dr Fisher for further orders.
--- NOTE | 2018-12-06 11:42 | NUR ---
Nutrition Follow-up Notes Wt.: 86.4 kg Pt's asleep, no immediate family member at bedside except for sitter during rounds this morning. Pt's no signs of distress noted earlier per nursing. per records pt with improving hemiparesis. pt is currently on CCHO 60 gm/meal diet with adequate PO of 75% x 2 days per RN doc Est. Needs BW [id number] kcal (23-25 kcal/kgBW), 65-82gms pro (0.8-1.0 gms/kgBW r/t elev RFT). Will continue to monitor pertinent labs and reassess nutrient need prn Labs: BUN 52 H, CREAT 1.56 H, GLU 141 H Skin: Ori scale 20, low risk, skin intact per log feeder. GI: Pt had 3 BM today per log feeder. PES: Altered nutrition related lab values r/t acute/chronic medical condition aeb hyperglycemia, elev A1C, RFT, mod hypoalb Will continue to monitor PO intake, skin status, pertinent labs and weight trend. F/u in 3-5 days. Rec.: 1.) refer to CDE on DC. 2) consider renal specific 70 gm protein 2 gm na along with current diet if RFT continue to be elev. 3) continue current plan of care
--- NOTE | 2018-12-06 12:10 | NUR ---
MD: S/W Dr Fisher. Made MD aware of BP and that Clonidine was given. Most recent BP 180/108. Headache is starting to resolve.
[2018-12-06] MEDS ORDERED: DEXTROSE (50%) 50ML SYRG IV PRN (13:00)
--- NOTE | 2018-12-06 19:29 | NUR ---
CLOSING SHIFT NOTE: Report given to NOC Davin ROJAS. Endorsed care of patient.
--- NOTE | 2018-12-06 20:00 | NUR ---
RECEIVED PT IN BED, A/O X4, IN NO ACUTE DISTRESS, C/O BACK PAIN 03/14, EDUCATED ON PAIN MGT, INFORMED PT THAT [facility] IS NOT DUE UNTIL 2144; PT STARTED TO BE UPSET AND REQUESTING FOR MD TO BE CALLED REGARDING PAIN MED. POC REVIEWED WITH PT, VERBALIZED UNDERSTANDING. CALL LIGHT WITHIN REACH, ENCOURAGED TO CALL IF HELP IS NEEDED, SIDE RAILS UP X2, BED IN LOWEST LOCKED POSITION. CONTINUE CARE.
[2018-12-06] MEDS: TEMAZEPAM 15 MG CAP PO PRN (21:00)
[2018-12-06] MEDS: ATORVASTATIN 20 MG TAB PO SCH (21:00)
--- NOTE | 2018-12-06 21:00 | NUR ---
BACK PAIN MEDICATED WITH [facility] ORDERED, WILL REASSESS.
--- NOTE | 2018-12-06 21:15 | NUR ---
PT C/O STUFFY NOSE, O2 SAT 99% ON 2L NC. INFORMED PT THAT BENCH WORKER WILL BE PAGED. CONTINUE CARE.
--- NOTE | 2018-12-06 21:32 | NUR ---
TUB RIDER Called/paged Jose Cook TUB RIDER called re:c/o stuffy nose, pt requesting nasal spray. Waiting for call back. Continue care.
--- NOTE | 2018-12-06 21:42 | NUR ---
CAR ATTENDANT returned call Jose Cook CAR ATTENDANT returned call, updated on patient status and reason for call, orders received, will carry out. Continue care.
[2018-12-06] MEDS ORDERED: FLUTICASONE PROP NASAL SPR 0.05 % (50MCG) 16GM EACHNOSTRI SCH (22:00)
[2018-12-06] MEDS ORDERED: SALINE 0.65 % NASAL SPRAY 45ML BOTTLE EACHNOSTRI SCH (22:00)
[2018-12-06] MEDS ORDERED: SALINE 0.65 % NASAL SPRAY 45ML BOTTLE ONE (22:07)
[2018-12-07] VITALS (8 sets, daily range): BP systolic 141–163; BP diastolic 81–105
[2018-12-07] MEDS: cloNIDine HCL 0.1 MG TAB PO PRN ×2 (00:15→14:58)
--- NOTE | 2018-12-07 03:45 | NUR ---
PT C/O OF STUFFY NOSE AGAIN, EDUCATED PT ON NASAL SPRAY FREQUENCY. PT THEN STATES THAT HE STUDIED MEDICINE AND THAT IT IS NOT THE RIGHT FREQUENCY. PT REQUESTING TO SPEAK TO COMMISSIONED DEFENCE FORCE OFFICER. JORGE CHONGWOVEN BLIND LOOM TENDER MADE AWARE.
--- NOTE | 2018-12-07 04:15 | NUR ---
ARLETTE PATEL SPOKE TO PT AND CUTTING SUPERVISOR. PER CUTTING SUPERVISOR, OK TO CHANGE NASAL SPRAY FREQUENCY TO Q4 HRS. ORDER ENTERED. CONTINUE CARE.
[2018-12-07] MEDS: HYDROcodone-ACET 5/325MG TAB PO PRN ×4 (04:32→23:18)
[2018-12-07] MEDS: SALINE 0.65 % NASAL SPRAY 45ML BOTTLE EACHNOSTRI SCH ×5 (05:38→21:46)
[2018-12-07] MEDS: hydrALAZINE HCL 25 MG TAB PO SCH ×3 (06:17→21:38)
[2018-12-07] MEDS: INSULIN LANTUS (GLARGINE) 1 /0.01ml (100units/ml) SC SCH ×2 (06:26→22:17)
[2018-12-07] MEDS: ACCU-CHEK COMFORT CURVE STRIP VI SCH ×4 (06:26→22:17)
[2018-12-07] MEDS: InsuLIN REG 1unit/0.01ml Soln (100units/ml) SC SCH ×4 (06:26→22:07)
[2018-12-07 06:49] LABS: Calcium 8.7 mg/dL (8.5-10.1); Potassium 4.1 mmol/L (3.5-5.1)
[2018-12-07 06:51] LABS: BUN/Creatinine Ratio 29.1
[2018-12-07] MEDS ORDERED: IOHEXOL 350 MG/ML 100ML IJ ONE (09:02)
--- NOTE | 2018-12-07 09:12 | NUR ---
PT OFF UNIT TO RADIOLOGY FOR CTA VIA W/C. NO S/S OF ACUTE DISTRESS NOTED AT DEPARTURE.
[2018-12-07] MEDS ORDERED: NITROGLYCERIN 0.4 MG SL TAB SL ONE (09:17)
[2018-12-07] MEDS ORDERED: METOPROLOL TARTRATE 1MG/1ML-5ML VIAL IV ONE ×2 (09:18→09:47)
[2018-12-07] MEDS: FAMOTIDINE 20 MG TAB PO SCH (10:00)
--- NOTE | 2018-12-07 10:28 | NUR ---
CORONARY CTA STUDY. PT BROUGHT TO RADIOLOGY FOR CTA STUDY. 20G ANGIO INSERTED INTO THE LEFT A/C FOR THE PROCEDURE. PT GIVEN METOPROLOL 5MG IVP x 5 OVER 20 MINUTES TO REDUCE THE HR TO ABOUT 60. HR NEVER GOT LOWER THAN 76/MIN, NORMAL SINUS RHYTHM THROUGHOUT. BP RANGED FROM 139/84 AT 0930 JUST BEFORE PROCEDURE TO 136/87 WHEN THE PROCEDURE WAS CANCELLED AT 0955 DUE TO TOO HIGH OF A HR. THE TIMES OF THE 5 DOSES OF METOPROLOL WERE: 0934, 0938, 0945, 0950, 0953.
[2018-12-07] MEDS: HCTZ 25 MG TAB PO SCH (10:37)
[2018-12-07] MEDS: ATENOLOL 50 MG TAB PO SCH (10:38)
[2018-12-07] MEDS: LISINOPRIL 20 MG TAB PO SCH ×2 (10:38→21:47)
[2018-12-07] MEDS: GABAPENTIN 300 MG CAP PO SCH ×2 (11:43→21:37)
[2018-12-07] MEDS ORDERED: HYDROCORTISONE 10 MG TAB PO ONE (15:15)
--- NOTE | 2018-12-07 15:25 | NUR ---
DR. ZAPIEN AT BEDSIDE.
[2018-12-07] MEDS: ATORVASTATIN 20 MG TAB PO SCH (21:37)
[2018-12-07] MEDS ORDERED: PROPRANOLOL HCL 20 MG TAB PO SCH (22:00)
[2018-12-08] MEDS: SALINE 0.65 % NASAL SPRAY 45ML BOTTLE EACHNOSTRI SCH ×4 (01:31→13:51)
[2018-12-08] MEDS: TEMAZEPAM 15 MG CAP PO PRN (01:38)
[2018-12-08 04:37] VITALS: BP 149/79
[2018-12-08] MEDS: hydrALAZINE HCL 25 MG TAB PO SCH ×2 (06:06→13:57)
[2018-12-08] MEDS: InsuLIN REG 1unit/0.01ml Soln (100units/ml) SC SCH ×3 (06:18→17:00)
[2018-12-08] MEDS: INSULIN LANTUS (GLARGINE) 1 /0.01ml (100units/ml) SC SCH (06:19)
[2018-12-08] MEDS: ACCU-CHEK COMFORT CURVE STRIP VI SCH ×3 (06:19→17:00)
[2018-12-08 08:13] VITALS: BP 142/81
[2018-12-08 08:20] VITALS: BP 161/81
[2018-12-08] MEDS: FAMOTIDINE 20 MG TAB PO SCH (09:28)
[2018-12-08] MEDS: HCTZ 25 MG TAB PO SCH (09:29)
[2018-12-08] MEDS: GABAPENTIN 300 MG CAP PO SCH (09:29)
[2018-12-08] MEDS: ATENOLOL 50 MG TAB PO SCH (09:30)
[2018-12-08] MEDS: LISINOPRIL 20 MG TAB PO SCH (09:31)
[2018-12-08] MEDS: HYDROcodone-ACET 5/325MG TAB PO PRN (09:32)
[2018-12-08] MEDS ORDERED: HYDROCORTISONE 10 MG TAB PO SCH (10:00)
[2018-12-08 12:30] VITALS: BP 147/89
[2018-12-08] MEDS ORDERED: GABAPENTIN 300 MG CAP PO ONE (15:30)
[2018-12-10] MEDS ORDERED: SALINE 0.65 % NASAL SPRAY 45ML BOTTLE EACHNOSTRI SCH (06:00)
== END 2018-12-08 16:52 | disposition home or self-care (01) | DRG 280 ==
LOC: ER 16:50 → EDBD 16:50 → OVERFLOW 16:51 → WEST WING 23:22 → TELE-WESTW 11-28 16:17
PROVIDERS: ADMIT Nurse Practitioner; ATTEND Internal Medicine
DX: I21.4 Non-ST elevation (NSTEMI) myocardial infarction (principal); E11.10 Type 2 diabetes mellitus with ketoacidosis without coma; I67.83 Posterior reversible encephalopathy syndrome; I50.43 Acute on chronic combined systolic (congestive) and diastolic (congestive) heart failure; J96.00 Acute respiratory failure, unspecified whether with hypoxia or hypercapnia; N17.0 Acute kidney failure with tubular necrosis; I69.351 Hemiplegia and hemiparesis following cerebral infarction affecting right dominant side; I67.4 Hypertensive encephalopathy; I13.0 Hypertensive heart and chronic kidney disease with heart failure and stage 1 through stage 4 chronic kidney disease, or unspecified chronic kidney disease; N18.4 Chronic kidney disease, stage 4 (severe); E27.40 Unspecified adrenocortical insufficiency; I16.1 Hypertensive emergency; I12.9 Hypertensive chronic kidney disease with stage 1 through stage 4 chronic kidney disease, or unspecified chronic kidney disease; E11.65 Type 2 diabetes mellitus with hyperglycemia; E78.00 Pure hypercholesterolemia, unspecified; E78.5 Hyperlipidemia, unspecified; F17.200 Nicotine dependence, unspecified, uncomplicated; I25.10 Atherosclerotic heart disease of native coronary artery without angina pectoris; E11.40 Type 2 diabetes mellitus with diabetic neuropathy, unspecified; E11.22 Type 2 diabetes mellitus with diabetic chronic kidney disease; Z79.899 Other long term (current) drug therapy; Z79.4 Long term (current) use of insulin; Z82.49 Family history of ischemic heart disease and other diseases of the circulatory system; Z83.2 Family history of diseases of the blood and blood-forming organs and certain disorders involving the immune mechanism; Z83.3 Family history of diabetes mellitus; Z86.14 Personal history of Methicillin resistant Staphylococcus aureus infection
CPT/HCPCS: 36415; 70450; 70553; 71045; 78452; 80048; 80053; 80061; 80307; 82010; 82533; 82962; 83036; 83735; 83880; 84443; 84484; 85025; 85610; 85730; 87081; 93005; 93017; 93306; 94640; 96374; 96375; 96376; G0378; J0153; J1815